=== PATIENT | male | born 1970 | race African-American/Black ===

== ENCOUNTER 2020-05-18 13:17 | Outpatient (RCR) | payer OTHER | END 2020-05-19 | disposition home or self-care (01) | LOC: WCC 13:17 | DX: L97.822 Non-pressure chronic ulcer of other part of left lower leg with fat layer exposed (principal); L97.222 Non-pressure chronic ulcer of left calf with fat layer exposed; V19.49XA Pedal cycle driver injured in collision with other motor vehicles in traffic accident, initial encounter; Z90.89 Acquired absence of other organs; I10 Essential (primary) hypertension ==